=== PATIENT | male | born 1990 | race Caucasian/White ===

== ENCOUNTER 2018-11-26 19:11 | Emergency (ER) | payer OTHER ==
--- NOTE | 2018-11-26 19:20 | ER Report ---
History and Physical Time Seen By MD: 19:18 Hx. of Stated Complaint: LEFT RIB PAIN FOR 3 DAYS; STATES THAT ITS GETTING WORSE HPI/ROS CHIEF COMPLAINT: Left-sided rib pain HISTORY OF PRESENT ILLNESS: 28-year-old male patient presents to emergency room with complaint left-sided rib pain. Patient states that this been going on for the past 3 days. He denies any injury to the wrist. He states that he has significant amounts of pain with any type of movement. He denies having any nausea, vomiting or diarrhea. 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 He states that he is taken ibuprofen for this with no improvement. States pain has been getting worse throughout the last 3 days but especially worse today. Patient states pain is worse with deep inspiration. He denies having any fevers or chills. REVIEW OF SYSTEMS: Respiratory: No cough, no dyspnea. Cardiovascular: As noted above Gastrointestinal: No vomiting, no abdominal pain. Musculoskeletal: As noted above Allergies: Coded Allergies: No Known Drug Allergies (Unverified , 11/26/18) Home Meds Active Scripts Lidocaine (Lidocaine) 5 % Adh..patch, 1 PATCH TD DAILY, #10 PATCH apply in the morning and then remove 12 hours later. Prov:GYPSY MOISE 11/26/18 Ketorolac Tromethamine (KETOROLAC TROMETHAMINE) 10 Mg Tab, 10 MG PO Q6H, #20 TAB Prov:GYPSY MOISEP 11/26/18 Past Medical/Surgical History Patient has no pertinent medical or surgical history. Reviewed Nurses Notes: Yes Constitutional Vital Sign - Last 24 Hours 11/26/18 19:15 Temp 97.8 Pulse 89 Resp 17 B/P (MAP) 144/99 Pulse Ox 92 O2 Delivery Room Air Physical Exam General Appearance: The patient is alert, has no immediate need for airway protection and no current signs of toxicity. Respiratory: Chest is tender along the left side, seems to be worse under the left breast and over to the mid axillary line, lungs are clear to auscultation. Cardiac: regular rate and rhythm Gastrointestinal: Abdomen is soft and non tender, no masses, bowel sounds normal. Musculoskeletal: Neck: Neck is supple and non tender. Extremities have full range of motion and are non tender. Skin: No rashes or lesions. DIFFERENTIAL DIAGNOSIS: After history and physical exam differential diagnosis was considered for fracture, contusion, pulmonary embolism, MS, herpes zoster Medical Decision Making Data Points Result Diagram: 11/26/18195411/26/181954 Laboratory Hematology Test 11/26/18 19:55 Red Blood Count 4.65 M/uL (4.00-5.60) Mean Corpuscular Volume 93.6 fL (80.0-96.0) Mean Corpuscular Hemoglobin 33.5 pg (26.0-33.0) Mean Corpuscular Hemoglobin Concent 35.8 g/dL (32.0-36.0) Red Cell Distribution Width 13.1 % (11.5-14.5) Mean Platelet Volume 9.1 fL (7.2-11.1) Neutrophils (%) (Auto) 60.8 % (39.4-72.5) Lymphocytes (%) (Auto) 29.5 % (17.6-49.6) Monocytes (%) (Auto) 8.3 % (4.1-12.4) Eosinophils (%) (Auto) 0.7 % (0.4-6.7) Basophils (%) (Auto) 0.7 % (0.3-1.4) Nucleated RBC Relative Count (auto) 0.1 /100WBC Neutrophils # (Auto) 7.5 K/uL (2.0-7.4) Lymphocytes # (Auto) 3.7 K/uL (1.3-3.6) Monocytes # (Auto) 1.0 K/uL (0.3-1.0) Eosinophils # (Auto) 0.1 K/uL (0.0-0.5) Basophils # (Auto) 0.1 K/uL (0.0-0.1) Nucleated RBC Absolute Count (auto) 0.01 K/uL D-Dimer Quantitative (PE/DVT) 0.37 ug/ml (0-0.50) Sodium Level 141 mmol/L (137-145) Potassium Level 3.5 mmol/L (3.5-5.0) Chloride Level 106 mmol/L (98-107) Carbon Dioxide Level 24 mmol/L (22-30) Blood Urea Nitrogen 13 mg/dl (9-21) Creatinine 0.80 mg/dl (0.66-1.25) Glomerular Filtration Rate Calc > 60.0 Random Glucose 103 mg/dl (75-110) Calcium Level 8.8 mg/dl (8.4-10.2) Total Bilirubin 1.6 mg/dl (0.2-1.3) Aspartate Amino Transf (AST/SGOT) 36 U/L (0-35) Alanine Aminotransferase (ALT/SGPT) 61 U/L (0-56) Alkaline Phosphatase 80 U/L (0-126) Troponin I < 0.012 ng/ml Total Protein 7.0 g/dl (6.3-8.2) Albumin 4.2 g/dl (3.5-5.0) Chemistry Test 11/26/18 19:55 White Blood Count 12.4 k/uL (4.5-11.0) Red Blood Count 4.65 M/uL (4.00-5.60) Hemoglobin 15.6 g/dL (14.0-18.0) Hematocrit 43.5 % (42.0-52.0) Mean Corpuscular Volume 93.6 fL (80.0-96.0) Mean Corpuscular Hemoglobin 33.5 pg (26.0-33.0) Mean Corpuscular Hemoglobin Concent 35.8 g/dL (32.0-36.0) Red Cell Distribution Width 13.1 % (11.5-14.5) Platelet Count 274 K/uL (150-450) Mean Platelet Volume 9.1 fL (7.2-11.1) Neutrophils (%) (Auto) 60.8 % (39.4-72.5) Lymphocytes (%) (Auto) 29.5 % (17.6-49.6) Monocytes (%) (Auto) 8.3 % (4.1-12.4) Eosinophils (%) (Auto) 0.7 % (0.4-6.7) Basophils (%) (Auto) 0.7 % (0.3-1.4) Nucleated RBC Relative Count (auto) 0.1 /100WBC Neutrophils # (Auto) 7.5 K/uL (2.0-7.4) Lymphocytes # (Auto) 3.7 K/uL (1.3-3.6) Monocytes # (Auto) 1.0 K/uL (0.3-1.0) Eosinophils # (Auto) 0.1 K/uL (0.0-0.5) Basophils # (Auto) 0.1 K/uL (0.0-0.1) Nucleated RBC Absolute Count (auto) 0.01 K/uL D-Dimer Quantitative (PE/DVT) 0.37 ug/ml (0-0.50) Glomerular Filtration Rate Calc > 60.0 Calcium Level 8.8 mg/dl (8.4-10.2) Total Bilirubin 1.6 mg/dl (0.2-1.3) Aspartate Amino Transf (AST/SGOT) 36 U/L (0-35) Alanine Aminotransferase (ALT/SGPT) 61 U/L (0-56) Alkaline Phosphatase 80 U/L (0-126) Troponin I < 0.012 ng/ml Total Protein 7.0 g/dl (6.3-8.2) Albumin 4.2 g/dl (3.5-5.0) Coagulation Test 11/26/18 19:55 D-Dimer Quantitative (PE/DVT) 0.37 ug/ml EKG/Imaging EKG Interpretation 12 lead EKG: Rhythm: normal sinus rhythm with ventricular rate of 78 bpm Gonzales: normal QRS: normal ST segments: normal Imaging CHEST PA LAT, RIBS LEFT INDICATION: Left rib pain, no injury COMPARISON: None available FINDINGS: Heart size within normal limits. There is no focal infiltrate or lobar consolidation. There is no pneumothorax or pleural effusion. Left rib series is negative. IMPRESSION: 1. Negative left rib series, no pneumothorax is identified Report Dictated By: Marco Antonio Gallo at 11/26/2018 7:53 PM Report E-Signed By: Marco Antonio Gallo at 11/26/2018 7:56 PM ED Course/Re-evaluation ED Course Patient was admitted to examine, history and physical were obtained. Differential diagnoses were considered. On examination lungs are clear, heart is regular, abdomen soft nontender. Patient does have tenderness to the left ribs. There is no bruising noted, there is no rash noted. An IV started, patient received 30 mg of Toradol, a CBC, CMP, troponin, d-dimer, left rib series were done. EKG was negative, troponin was negative, lab results were unremarkable, patient did have a slightly elevated white count of 12.4. Patient has no fever, cough, Adelfo type feelings. An incompletely that is related to anything. The x- rays were also negative. I discussed the findings with the patient. I believe that he is having likely muscular skeletal pain secondary to work. We will go ahead and try him on some Toradol, which she states seemed to help. Emergency ro om, as well as Lidoderm patches to relieve the discomfort. Patient is to follow- up with his primary care provider in the next week. Patient requested for some time off work and we will give him the next 2 days so he can rest and recover. Patient verbalized understanding and agreement with plan. Decision to Disposition Date: Nov 26, 2018 Decision to Disposition Time: 21:06 Depart Departure Latest Vital Signs Vital Signs Date Time Temp Pulse Resp B/P (MAP) Pulse Ox O2 Delivery O2 Flow Rate FiO2 11/26/18 19:15 97.8 89 17 144/99 92 Room Air Impression: Primary Impression: Rib pain on left side Condition: Improved Disposition: HOME OR SELF-CARE New Scripts Lidocaine (Lidocaine) 5 % Adh..patch 1 PATCH TD DAILY, #10 PATCH apply in the morning and then remove 12 hours later. Prov: GYPSY MOISE 11/26/18 Ketorolac Tromethamine (KETOROLAC TROMETHAMINE) 10 Mg Tab 10 MG PO Q6H, #20 TAB Prov: GYPSY MOISE 11/26/18 Patient Instructions: Chest Wall Pain (ED) Additional Instructions: Limit activity by pain. Get plenty of rest. Take the medication as prescribed. Follow up with your primary care provider in the next week. Return to the ER if condition worsens. Alternate ice and heat. No ibuprofen when taking the Toradol. GYPSY MOISE Nov 26, 2018 19:20
[2018-11-26] MEDS ORDERED: KETOROLAC 30 MG/ML VIAL IVP ONE (19:30)
--- NOTE | 2018-11-26 19:45 | EKG ---
FACILITY: [facility] - [place] PATIENT NAME: ANSHUL NARANJO : [id number] MR: [id number] V: [id number] EXAM DATE: ORDERING PHYSICIAN: GYPSY MOISE TECHNOLOGIST: FREDA Test Reason : LEFT SIDED PAIN Blood Pressure : / mmHG Vent. Rate : 078 BPM Atrial Rate : 078 BPM P-R Int : 146 ms QRS Dur : 088 ms QT Int : 380 ms P-R-T Axes : 036 033 025 degrees QTc Int : 433 ms Normal sinus rhythm Normal ECG No previous ECGs available Confirmed by AVA ALMEIDA ([id number]) on 11/27/2018 6:46:46 AM Referred By: Confirmed By:AVA ALMEIDA
--- NOTE | 2018-11-26 20:02 | RADIOLOGY IMAGING REPORT ---
FACILITY: [facility] PATIENT NAME: Rafael Engel : 1990 MR: [id number] V: [id number] EXAM DATE: ORDERING PHYSICIAN: GYPSY MOISE TECHNOLOGIST: [place] [facility] [place]: Rafael Engel : 1990 Visit/Account:[id number] Date of Sevice: 11/26/2018 CHEST PA LAT, RIBS LEFT INDICATION: Left rib pain, no injury COMPARISON: None available FINDINGS: Heart size within normal limits. There is no focal infiltrate or lobar consolidation. There is no pneumothorax or pleural effusion. Left rib series is negative. IMPRESSION: 1. Negative left rib series, no pneumothorax is identified Report Dictated By: Marco Antonio Gallo at 11/26/2018 7:53 PM Report E-Signed By: Marco Antonio Gallo at 11/26/2018 7:56 PM WSN:[id number]
--- NOTE | 2018-11-26 20:02 | RADIOLOGY IMAGING REPORT ---
FACILITY: [facility] - [place] PATIENT NAME: Rafael Engel : 1990 MR: [id number] V: [id number] EXAM DATE: ORDERING PHYSICIAN: GYPSY MOISE TECHNOLOGIST: Location: [facility] Patient: Rafael Engel : 1990 Visit/Account:[id number] Date of Sevice: 11/26/2018 CHEST PA LAT, RIBS LEFT INDICATION: Left rib pain, no injury COMPARISON: None available FINDINGS: Heart size within normal limits. There is no focal infiltrate or lobar consolidation. There is no pneumothorax or pleural effusion. Left rib series is negative. IMPRESSION: 1. Negative left rib series, no pneumothorax is identified Report Dictated By: Marco Antonio Gallo at 11/26/2018 7:53 PM Report E-Signed By: Marco Antonio Gallo at 11/26/2018 7:56 PM WSN:[id number]
[2018-11-26 20:08] LABS: PLATELET COUNT, AUTOMATED 274 K/uL (150-450)
[2018-11-26 21:00] VITALS: BP 148/91
[2018-11-26] MEDS ORDERED: KET10 PO (21:06)
[2018-11-26] MEDS ORDERED: LIDO700A19 TD (21:06)
[2018-11-26] MEDS ORDERED: KETOROLAC TROM 10 MG TAB TH PO ONE (21:15)
[2018-11-26] MEDS ORDERED: LIDOCAINE 5% PATCH TP SCH (21:15)
[2018-11-26] MEDS ORDERED: LIDOCAINE 5% PATCH TP ONE (21:30)
[2018-11-27] MEDS ORDERED: PATCH REMOVAL 1 EA TOP SCH (21:00)
== END 2018-11-26 21:15 | disposition home or self-care (01) ==
LOC: ER 19:37
DX: R07.81 Pleurodynia (principal)
CPT/HCPCS: 71046; 71100; 84484; 85025; 85379; 93005; 96374; 99284; J1885; 82040; 82247; 82310; 82374; 82435; 82565; 82947; 84075; 84132; 84155; 84295; 84450; 84460; 84520